=== PATIENT | female | born 1965 | race Caucasian/White ===

== ENCOUNTER 2019-04-16 09:38 | Emergency (ER) | payer BC, MEDICAID ==
[~2019-04-16] VITALS: Ht 154.9 cm; Wt 80.4 kg
[2019-04-16 09:48] VITALS: BP 132/90
--- NOTE | 2019-04-16 10:09 | NUR ---
pt bib self with c/o lower back pain x yesterday, non radiating , denies flank pain/tenderness, denies dysuria at this time. ambulatory with slow guarded gait. denies recent injury . per pr, she woke with pain at lower back, pain 10/10 at this time. denies any nausea or v, chills, fever. urinates fine, no difficulty. states took motrin 800 at home last night, went owr today am, felt dizzy and came to er. pt aaox4, normal breathing. no other distress noted. pt to be seen by er md. will continue to monitor pt. hx--denies rx---none
[2019-04-16] MEDS ORDERED: IBUPROFEN 400 MG TAB PO ONE (10:50)
[2019-04-16] MEDS ORDERED: HYDROcodone/APAP 5/325 MG 1 TAB TAB PO ONE (10:50)
[2019-04-16 11:19] VITALS: BP 132/90
--- NOTE | 2019-04-16 11:19 | NUR ---
Patient discharged with v/s stable. Written and verbal after care instructions given and explained. Patient alert, oriented and verbalized understanding of instructions. Ambulatory with steady gait. All questions addressed prior to discharge. ID band removed. Patient advised to follow up with PMD. Rx of [id number] given. Patient educated on indication of medication including possible reaction and side effects. Opportunity to ask questions provided and answered.
== END 2019-04-16 11:19 | disposition home or self-care (01) ==
LOC: MED 09:38
DX: M54.5 Low back pain (principal); Z90.49 Acquired absence of other specified parts of digestive tract; Z98.890 Other specified postprocedural states
CPT/HCPCS: 99283

== ENCOUNTER 2019-06-13 14:06 | Emergency (ER) | payer BC ==
[~2019-06-13] VITALS: Ht 154.9 cm; Wt 79.4 kg
[2019-06-13 14:12] VITALS: BP 118/73
--- NOTE | 2019-06-13 14:17 | NUR ---
PT VSS, PROVIDED URINE SAMPLE AND SENT TO LOBBY.
--- NOTE | 2019-06-13 15:14 | NUR ---
PT PLACED IN BED 4.
--- NOTE | 2019-06-13 15:37 | NUR ---
PT C/O LOWER ABD PAIN THAT FEELS "HOT, BURNING AND LIKE CRAMPS", PAIN RADIATES DOWN BL LEGS AND PAIN TO LOWER BACK. PT STATES PAIN FEELS SIMILAR TO MENSTRUAL CRAMPS BUT SHE HAS NOT HAD PERIOD IN 1 YEAR. STATES SHE HAS BROWN D/C BUT NO BURNING OR FREQUENCY W/ URINATION. ABD IS ROUND, SOFT, ACTIVE BS X4, TENDER TO LUQ. PT LAYING IN BED, IN HOSPITAL GOWN, IN NO ACUTE DISTRESS.
[2019-06-13] MEDS ORDERED: NACL 0.9% 1,000 ML IV SCH (15:58)
[2019-06-13] MEDS ORDERED: fentaNYL 0.05 MG/ML VIAL IVP ONE (16:00)
[2019-06-13] MEDS ORDERED: ONDANSETRON 4 MG/2 ML VIAL IVP ONE (16:00)
--- NOTE | 2019-06-13 16:40 | NUR ---
PT VERBALIZES PAIN RELIEF AT THIS TIME.
[2019-06-13 16:41] LABS: BASOPHILS % (AUTO) 0.5 % (0.0-2.0); EOSINOPHILS # (AUTO) 0.1 K/uL (0-0.4); EOSINOPHILS % (AUTO) 1.1 % (0.0-4.0); HEMATOCRIT 41.1 % (36-48); HEMOGLOBIN 13.9 g/dL (12.0-16.0); LYMPHOCYTES # (AUTO) 2.7 K/uL (2.5-16.5); MEAN CORPUSCULAR HEMOGLOBIN 31 pg (27-31); MEAN CORPUSCULAR HGB CONC 34 g/dL (33-37); MEAN CORPUSCULAR VOLUME 90.2 fL (80-94); MONOCYTES # (AUTO) 0.4 K/uL (0.8-1.0); MONOCYTES % (AUTO) 4.9 % (1.7-9.3); NEUTROPHILS # (AUTO) 5.8 K/uL (1.8-7.7); NEUTROPHILS % (AUTO) 63.5 % (42.2-75.2); PLATELET COUNT (AUTO) 261 K/uL (140-450); RED BLOOD CELL COUNT(AUTO) 4.56 MIL/uL (4.20-5.40); RED CELL DISTRIBUTION WIDTH 13.3 % (11.6-13.7); WHITE BLOOD COUNT (AUTO) 9.1 K/uL (4.8-10.8)
[2019-06-13 16:45] LABS: APPEARANCE,URINE CLEAR (CLEAR); BILIRUBIN,URINE NEGATIVE (NEGATIVE); BLOOD, URINE 2+ (NEGATIVE); COLOR,URINE YELLOW (YELLOW); LEUKOCYTE ESTERASE ,URINE NEGATIVE (NEGATIVE); NITRITE, URINE NEGATIVE (NEGATIVE); UGLUCOSE NEGATIVE (NEGATIVE)
[2019-06-13 16:55] LABS: RBC,URINE 0-5 /HPF (0-5)
[2019-06-13 16:56] LABS: WBC,URINE NONE SEEN /HPF (0-5)
[2019-06-13 17:02] LABS: ANION GAP 15.3 (8-16); CARBON DIOXIDE 27.2 mmol/L (21-32); CREATININE 0.6 mg/dL (0.6-1.3); POTASSIUM 3.5 mmol/L (3.5-5.1)
[2019-06-13 17:06] LABS: ALBUMIN 3.9 g/dL (3.4-5.0); TOTAL BILIRUBIN 0.3 mg/dL (0.0-1.0)
--- NOTE | 2019-06-13 17:46 | NUR ---
PT REFUSING PELVIC EXAM, PER DR SCHWARTZ PT CAN SWAB HERSELF, PT TAUGHT TO USE SWABS, SAMPLES COLLECTED AND SENT TO LAB.
[2019-06-13] MEDS ORDERED: KETOROLAC 30 MG/ML VIAL IVP ONE (19:20)
[2019-06-13 20:00] VITALS: BP 119/95
--- NOTE | 2019-06-13 20:01 | NUR ---
Patient discharged with v/s stable. Written and verbal after care instructions given and explained. Patient verbalized understanding. Ambulatory with steady gait. All questions addressed prior to discharge. Advised to follow up with PMD.
[2019-06-15 06:38] LABS: CHLAMYDIA TRACHOMATIS AMP DNA Negative (Negative)
== END 2019-06-13 20:01 | disposition home or self-care (01) ==
LOC: MED 14:06
DX: R10.9 Unspecified abdominal pain (principal); M54.9 Dorsalgia, unspecified; Z98.890 Other specified postprocedural states; Z90.49 Acquired absence of other specified parts of digestive tract; Z87.898 Personal history of other specified conditions
CPT/HCPCS: 36415; 74176; 80053; 81001; 81025; 82150; 83605; 83690; 85025; 87040; 87210; 87491; 96374; 96375; 99284; J1885; J2405; J3010; J7030

== ENCOUNTER 2019-06-21 16:26 | Emergency (ER) | payer BC ==
[~2019-06-21] VITALS: Ht 154.9 cm; Wt 78.9 kg
[2019-06-21 16:30] VITALS: BP 152/84
--- NOTE | 2019-06-21 16:35 | NUR ---
PT AMBULATED TO ER BED 12
--- NOTE | 2019-06-21 16:49 | NUR ---
PT C/O CONSTANT BURNING/SHARP MEDIAL ABD PAIN RADIATING TO RIGHT MEDIAL BACK SINCE 06/13/19. SEEN HERE ON 06/13/19 AND DIAGNOSED WITH SMALL UMBILICAL HERNIA AND OVARIAN CYST, PT UNABLE TO SEE PCP. PT REPORT BLOOD TINGED EMESIS. PT DENIES HAVING UTI SX, CVA TENDERNESS, N/V/D. PATIENT STATES PAIN OF 8/10 AT THIS TIME; VSS; PATIENT POSITIONED FOR COMFORT; HOB ELEVATED; BEDRAILS UP X1; BED DOWN. ER MD MADE AWARE OF PT STATUS.
[2019-06-21] MEDS ORDERED: DICYCLOMINE HCL LIQUID 20 MG, ALUMINUM HYD/MAG/SIMETHICONE 30 ML, LIDOCAINE VISCOUS 2% ... PO ONE ×3 (17:05)
[2019-06-21] MEDS ORDERED: ACETAMINOPHEN/CODEINE 300/30MG 1 TAB PO ONE (17:45)
[2019-06-21 18:09] VITALS: BP 132/82
--- NOTE | 2019-06-21 18:09 | NUR ---
Patient discharged with v/s stable. Written and verbal after care instructions given and explained. Patient alert, oriented and verbalized understanding of instructions. Ambulatory with steady gait. All questions addressed prior to discharge. ID band removed. Patient advised to follow up with PMD. Rx of TYLNOL W/ CODEINE AND PRILOSEC given. Patient educated on indication of medication including possible reaction and side effects. Opportunity to ask questions provided and answered. PT TOLD TO WAIT IN ER LOBBY FOR 15 MINUTES BEFORE LEAVING.
== END 2019-06-21 18:09 | disposition home or self-care (01) ==
LOC: MED 16:26
DX: K21.9 Gastro-esophageal reflux disease without esophagitis (principal); K42.9 Umbilical hernia without obstruction or gangrene; Z90.49 Acquired absence of other specified parts of digestive tract
CPT/HCPCS: 81002; 81025; 99283